=== PATIENT | female | born 1955 ===

== ENCOUNTER 2018-02-04 18:27 | Emergency (ER) | payer OTHER ==
[2018-02-04 18:45] VITALS: BP 135/86; PULSE 91; RESP 18; TEMP 98.7; O2SAT 100
[2018-02-04] MEDS ORDERED: Naproxen 500 MG TAB PO STA (19:24)
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
--- NOTE | 2018-02-05 18:28 | CARD ---
APPROVED REPORT Date of service: 02/04/2018 EKG Measurement Heart [id number] <Conclusion> Normal sinus rhythm Inferior infarct, age undetermined Abnormal ECG
== END 2018-02-04 20:32 | disposition home or self-care (01) ==
LOC: H.ER 18:27
DX: S20.219A Contusion of unspecified front wall of thorax, initial encounter (principal); V43.62XA Car passenger injured in collision with other type car in traffic accident, initial encounter; Y92.410 Unspecified street and highway as the place of occurrence of the external cause; I10 Essential (primary) hypertension